=== PATIENT | male | born 1960 | race Caucasian/White ===

== ENCOUNTER 2016-06-25 11:46 | Emergency (ER) | payer BC ==
[~2016-06-25] VITALS: Ht 182.9 cm; Wt 106.5 kg
[2016-06-25 11:50] VITALS: TEMP 36.8; Ht 182.9 cm; Wt 106.5 kg
[2016-06-25] MEDS ORDERED: CARV25TA2 PO (12:20)
[2016-06-25] MEDS ORDERED: OMEP40CA41 PO (12:20)
[2016-06-25] MEDS ORDERED: VITA1TAB4 PO (12:20)
[2016-06-25] MEDS ORDERED: ATV/1 SL (12:20)
[2016-06-25] MEDS ORDERED: GLC5 PO (12:20)
[2016-06-25] MEDS ORDERED: LISI-461 PO (12:20)
[2016-06-25] MEDS ORDERED: [UNRECOGNIZED DRUG - CODE] (12:20)
[2016-06-25] MEDS ORDERED: [UNRECOGNIZED DRUG - CODE] PO (12:20)
--- NOTE | 2016-06-25 12:43 | EMERGENCY ROOM VISIT NOTE ---
History Report prepared by Marycarmen: Melissa Erazo Under the Supervision of: Dr. Robert Huber D.O. First contact with patient: 12:13 Chief Complaint: ABDOMINAL PAIN Stated Complaint: STOMACH PAIN, HAS DRANK SINCE Nursing Triage Summary: Pt c/o diarrhea that began 06/04/16, was seen in ED at [place] a few times and given fluids. Associates nausea. "everytimes I eat I get pain in my gallbladder area". Pt states he has had a GB US and a CT scan "but they didn't do the big one for gallbladder, HIDA scan". Pt states HIDA is scheduled for Friday. "I can't eat nothing and I can't keep nothing in (diarrhea). Denies vomiting. History of Diabetes IDDM Lost 20 pounds in 3 weeks. History of Present Illness The patient is a 55 year old male who presents to the Emergency Room with complaints of constant abdominal pain beginning 3 weeks ago. The patient reports that he was seen in the ED at [place] multiple times and was given fluids. He notes that he had a CT and an ultrasound of his gallbladder but states that they did not do a HIDA scan and he has one scheduled for Friday. The patient states that his pain is worsened after eating and especially with fatty foods.The patient complains of diarrhea beginning 3 weeks ago, pain with eating, recent camping, and nausea with eating. He denies any vomiting, history of heart attack, evaluation for peptic ulcer disease, treatment for H-pylori, and anal intercourse. The patient notes that he has a history of having Campylobacter bacteria. He reports that he is in no pain right now as he just used the bathroom and has not eaten. Source of History: patient Onset: 3 weeks ago Position: abdomen Timing: constant Modifying Factors (Worsening): eating Associated Symptoms: + diarrhea, + nausea, No vomiting Review of Systems See above for pertinent positives & negatives. A total of 10 systems reviewed and were otherwise negative. Past Medical & Surgical Medical Problems: (1) Diabetes (2) HTN (hypertension) Family History No pertinent family history stated. Social History Smoking Status: Never Smoker Alcohol Use: occasionally Drug Use: none Marital Status: Housing Status: lives with significant other Occupation Status: employed Current/Historical Medications Scheduled Carvedilol (Coreg), 25 MG PO BID Desipramine Hcl (Desipramine Hcl), 50 MG PO BID Glipizide (Glipizide), 5 MG PO DAILY Lisinopril (Zestril), 10 MG PO BID Lorazepam (Ativan), 1 MG SL DAILY Omeprazole (Prilosec), 40 MG PO DAILY Vitamin E (Vitamin E), 800 UNITS PO BID Miscellaneous Medications Testosterone (Androgel), 2 APPLN Allergies Coded Allergies: Lactose (Verified Allergy, Unknown, ., 06/25/16) Peanut (Verified Allergy, Unknown, ., 06/25/16) Physical Exam Vital Signs Date Time Temp Pulse Resp B/P Pulse Ox O2 Delivery O2 Flow Rate FiO2 06/25/16 14:28 97 125/71 94 06/25/16 13:31 104 06/25/16 13:24 101 18 119/76 96 Room Air 06/25/16 11:50 36.8 111 18 116/65 97 Room Air Physical Exam GENERAL: Patient is well appearing and in no acute distress. HEENT: No acute trauma, normocephalic atraumatic, mucous membranes moist, no nasal congestion, no scleral icterus. NECK: No stridor, no adenopathy, no meningismus, trachea is midline. LUNGS: No dyspnea. Clear to auscultation and equal bilaterally. No wheeze, no rhonchi. HEART: Regular rate and rhythm. No murmurs, rubs, gallops appreciated. ABDOMEN: Hyperactive bowel sounds, no guarding, minimal abdominal pain. BACK: No midline tenderness, no CVA tenderness EXTREMITIES: Normal motion all extremities, no cyanosis, no edema. NEUROLOGIC: Alert and oriented, no acute motor or sensory deficits, no focal weakness, cranial nerves grossly intact. SKIN: No rash, no jaundice, no diaphoresis. Medical Decision & Procedures ER Provider Diagnostic Interpretation: X ray results and stated below per my interpretation and radiologist interpretation. Other radiology results and stated below per my review and radiologist interpretation: ULTRASOUND RIGHT UPPER QUADRANT ABDOMEN FINDINGS: Liver: The liver is normal in size and echotexture. There is no intrahepatic biliary ductal dilatation. The main portal vein is patent. Gallbladder: The gallbladder is contracted but otherwise normal in appearance. No gallstones are identified. There is no gallbladder wall thickening or pericholecystic fluid. A sonographic Ling's sign is reportedly absent. The common bile duct measures up to 0.5 cm in diameter. Pancreas: Not well visualized due to overlying bowel gas. Right kidney: Survey images of the right kidney demonstrate mild cortical atrophy. There is no hydronephrosis. Ascites: None. IMPRESSION: 1. No acute sonographic abnormality is identified in the right upper quadrant. No gallstones are seen. 2. The pancreas was not well visualized due to overlying bowel gas. Electronically signed by: Efrain Christianson M.D. 06/25/2016 1:54 PM Dictated Date/Time: 06/25/2016 1:52 PM TWO VIEW CHEST FINDINGS: PA and lateral chest radiographs are obtained. No prior studies are available for comparison at the time of dictation. The cardiomediastinal silhouette is unremarkable. The lungs and pleural spaces are clear. There is no pneumothorax. The bony thorax appears intact. IMPRESSION: No active disease in the chest. Electronically signed by: Efrain Christianson M.D. 06/25/2016 2:28 PM Dictated Date/Time: 06/25/2016 2:28 PM Laboratory Results 06/25/16 12:35 Red Blood Count 5.29, Mean Corpuscular Volume 75.0, Mean Corpuscular Hemoglobin 25.1, Mean Corpuscular Hemoglobin Concent 33.5, Mean Platelet Volume 10.2, Neutrophils (%) (Auto) 77.5, Lymphocytes (%) (Auto) 11.8, Monocytes (%) (Auto) 9.3, Eosinophils (%) (Auto) 0.9, Basophils (%) (Auto) 0.3, Neutrophils # (Auto) 6.83, Lymphocytes # (Auto) 1.04, Monocytes # (Auto) 0.82, Eosinophils # (Auto) 0.08, Basophils # (Auto) 0.03 06/25/16 12:35 Test 06/25/16 12:28 06/25/16 12:35 Urine Color DK YELLOW Urine Appearance CLEAR (CLEAR) Urine pH 6.0 (4.5-7.5) Urine Specific [place] 1.023 (1.000-1.030) Urine Protein NEG (NEG) Urine Glucose (UA) NEG (NEG) Urine Ketones NEG (NEG) Urine Occult Blood NEG (NEG) Urine Nitrite NEG (NEG) Urine Bilirubin NEG (NEG) Urine Urobilinogen NEG (NEG) Urine Leukocyte Esterase TRACE (NEG) Urine WBC (Auto) 5-10 /hpf (0-5) Urine RBC (Auto) 0-4 /hpf (0-4) Urine Hyaline Casts (Auto) 1-5 /lpf (0-5) Urine Epithelial Cells (Auto) >30 /lpf (0-5) Urine Bacteria (Auto) NEG (NEG) Urine Renal Epithelial Cells /lpf (0-5) Urine Pathogenic Casts /lpf (0) Urine Mucus PRESENT (NONE PRSENT) White Blood Count 8.82 K/uL (4.8-10.8) Red Blood Count 5.29 M/uL (4.7-6.1) Hemoglobin 13.3 g/dL (14.0-18.0) Hematocrit 39.7 % (42-52) Mean Corpuscular Volume 75.0 fL (80-100) Mean Corpuscular Hemoglobin 25.1 pg (25-34) Mean Corpuscular Hemoglobin Concent 33.5 g/dl (32-36) Platelet Count 264 K/uL (130-400) Mean Platelet Volume 10.2 fL (7.4-10.4) Neutrophils (%) (Auto) 77.5 % Lymphocytes (%) (Auto) 11.8 % Monocytes (%) (Auto) 9.3 % Eosinophils (%) (Auto) 0.9 % Basophils (%) (Auto) 0.3 % Neutrophils # (Auto) 6.83 K/uL (1.4-6.5) Lymphocytes # (Auto) 1.04 K/uL (1.2-3.4) Monocytes # (Auto) 0.82 K/uL (0.11-0.59) Eosinophils # (Auto) 0.08 K/uL (0-0.5) Basophils # (Auto) 0.03 K/uL (0-0.2) RDW Standard Deviation 41.4 fL (36.4-46.3) RDW Coefficient of Variation 15.1 % (11.5-14.5) Immature Granulocyte % (Auto) 0.2 % Immature Granulocyte # (Auto) 0.02 K/uL (0.00-0.02) Anion Gap 9.0 mmol/L (3-11) Est Creatinine Clear Calc Drug Dose 119.7 ml/min Estimated GFR () 112.6 Estimated GFR (Non- 97.2 BUN/Creatinine Ratio 15.6 (10-20) Calcium Level 7.9 mg/dl (8.5-10.1) Total Bilirubin 0.3 mg/dl (0.2-1) Direct Bilirubin < 0.1 mg/dl (0-0.2) Aspartate Amino Transf (AST/SGOT) 11 U/L (15-37) Alanine Aminotransferase (ALT/SGPT) 15 U/L (12-78) Alkaline Phosphatase 63 U/L (45-117) Total Protein 6.8 gm/dl (6.4-8.2) Albumin 2.7 gm/dl (3.4-5.0) Lipase 88 U/L (73-393) Ethyl Alcohol mg/dL < 3.0 mg/dl (0-3) Laboratory results as reviewed by me. Medications Administered Medications (Trade) Dose Ordered Sig/Cheryl Route Start Time Stop Time Status Last Admin Dose Admin Lactated Ringer's (Lr 1000ml) 1,000 ml @ 999 mls/hr Q1H1M IV 06/25/16 12:15 06/25/16 14:15 DC 06/25/16 13:22 999 MLS/HR ECG Indication: abdominal pain Rate (beats per minute): 106 Rhythm: sinus tachycardia Findings: RBBB, other (normal axis, abnormal EKG) Comparison ECG Date: no prior available ED Course 1219: The patient was evaluated in room A4. A complete history and physical exam was performed. 1215: Lactated Ringer's 1000ml @ 999mls/hr IV. 1254: The patient states that he had a course of antibiotics prior to getting his diarrhea. He notes that a coworker was diagnosed with c-diff and he said that he was checked at [place] but it was negative. 1447: Reevaluated the patient. Discussed results and discharge instructions: He verbalized understanding and agreement. The patient is ready for discharge. Medical Decision Differential diagnosis: Etiologies such as appendicitis, diverticulitis, PUD, biliary pathology, UTI, pancreatitis, obstruction, mesenteric ischemia, aortic pathology, infections, inflammatory bowel disease, renal colic, as well as others were entertained. Patient is a 55-year-old male with a significant past medical history for diabetes as well as a cardiomyopathy per report. He states that in the middle of May he felt like he had a head cold was placed on antibiotics and ever since then has had diarrhea and crampy right upper quadrant abdominal pain exquisitely worse after eating. He reports this is similar to the symptoms his experienced before she had her gallbladder removed. He is been seen 3 times and [facility] and has a HIDA scan scheduled on this Friday. Presents to the ED for to hopefully achieve a HIDA scan, I informed the patient we do not have the radionucleotide available to allow for emergent or urgent HIDA. Patient's laboratory examination was largely unremarkable, do not feel that he is having an acute cholecystitis. Nor do I feel he has a ascending cholangitis. A right upper quadrant ultrasound was obtained, the report was reviewed. A stool culture was also ordered. We were not able to obtain a HIDA scan any sooner than what he are has scheduled with [facility], we'll give him a referral to follow-up with Dr. Sauceda of the [facility] next week. Patient will be discharged home in improved stable condition. [place] Drug Monitoring Program Search Results: patient reviewed within database Drug Monitoring Findings: The patient was given 12 Vicodin on 06/20. Impression Primary Impression: Abdominal pain Additional Impressions: Diabetes Hyperglycemia due to type 2 diabetes mellitus Hypoalbuminemia Scribe Attestation The scribe's documentation has been prepared under my direction and personally reviewed by me in its entirety. I confirm that the note above accurately reflects all work, treatment, procedures, and medical decision making performed by me. Departure Information Dispostion Home / Self-Care Referrals Mikal Witt D.O. (PCP) Forms Call Back Authorization, HOME CARE DOCUMENTATION FORM, IMPORTANT VISIT INFORMATION Patient Instructions Abdominal Pain, My [facility] Additional Instructions Follow-up for the HIDA scan this Friday as previously scheduled. Return for inability to keep fluids down, severe pain, fevers chills, or any other concerns. Call Dr. Sauceda's office for follow-up next week after your HIDA scan. Problem Qualifiers
[2016-06-25 12:44] LABS: URINE APPEARANCE CLEAR (CLEAR); URINE BILIRUBIN NEG (NEG); URINE COLOR DK YELLOW; URINE EPITHELIAL CELL AUTO >30 /lpf (0-5); URINE NITRITE NEG (NEG); URINE SPECIFIC GRAVITY 1.023 (1.000-1.030); UROBILINOGEN NEG (NEG)
[2016-06-25 12:46] LABS: BASO % 0.3 %; BASO ABS # 0.03 K/uL (0-0.2); COMPLETE YES; EOS % 0.9 %; HEMATOCRIT 39.7 % (42-52); IG% 0.2 %; LYMPH % 11.8 %; LYMPH ABS # 1.04 K/uL (1.2-3.4); MEAN CORPUSCULAR HEMOGLOBIN 25.1 pg (25-34); MEAN CORPUSCULAR HGB CONC 33.5 g/dl (32-36); MEAN PLATELET VOLUME 10.2 fL (7.4-10.4); MONO % 9.3 %; NEUT % 77.5 %; PLATELET COUNT 264 K/uL (130-400); RED BLOOD COUNT 5.29 M/uL (4.7-6.1); WHITE BLOOD COUNT 8.82 K/uL (4.8-10.8)
[2016-06-25 12:48] LABS: MANUAL MICROSCOPIC REQUIRED? NO; REVIEW REQ? YES
[2016-06-25 13:01] LABS: URINE MUCUS PRESENT (NONE PRSENT)
[2016-06-25 13:05] LABS: ALT/SGPT 15 U/L (12-78); BLOOD UREA NITROGEN 14 mg/dl (7-18); BUN/CREATININE RATIO 15.6 (10-20); CALCIUM 7.9 mg/dl (8.5-10.1); CARBON DIOXIDE 22 mmol/L (21-32); CHLORIDE 110 mmol/L (98-107); GLUCOSE 110 mg/dl (70-99); POTASSIUM 4.1 mmol/L (3.5-5.1); SODIUM 141 mmol/L (136-145)
[2016-06-25 13:08] LABS: ALKALINE PHOSPHATASE 63 U/L (45-117); AST/SGOT 11 U/L (15-37)
[2016-06-25] MEDS: LACTATED RINGER'S 1000ML 1,000 ML IV SCH ×2 (13:20→13:22)
--- NOTE | 2016-06-25 13:55 | DIAGNOSTIC IMAGING REPORT ---
ULTRASOUND RIGHT UPPER QUADRANT ABDOMEN CLINICAL HISTORY: Right upper quadrant abdominal pain. COMPARISON STUDY: No priors. TECHNIQUE: Real-time, grayscale, and color flow sonography of the right upper quadrant of the abdomen was performed. Images are reviewed in the transverse and longitudinal planes. FINDINGS: Liver: The liver is normal in size and echotexture. There is no intrahepatic biliary ductal dilatation. The main portal vein is patent. Gallbladder: The gallbladder is contracted but otherwise normal in appearance. No gallstones are identified. There is no gallbladder wall thickening or pericholecystic fluid. A sonographic Ling's sign is reportedly absent. The common bile duct measures up to 0.5 cm in diameter. Pancreas: Not well visualized due to overlying bowel gas. Right kidney: Survey images of the right kidney demonstrate mild cortical atrophy. There is no hydronephrosis. Ascites: None. IMPRESSION: 1. No acute sonographic abnormality is identified in the right upper quadrant. No gallstones are seen. 2. The pancreas was not well visualized due to overlying bowel gas. Electronically signed by: Efrain Christianson M.D. 06/25/2016 1:54 PM Dictated Date/Time: 06/25/2016 1:52 PM
--- NOTE | 2016-06-25 14:30 | DIAGNOSTIC IMAGING REPORT ---
TWO VIEW CHEST CLINICAL HISTORY: Right upper quadrant abdominal pain. FINDINGS: PA and lateral chest radiographs are obtained. No prior studies are available for comparison at the time of dictation. The cardiomediastinal silhouette is unremarkable. The lungs and pleural spaces are clear. There is no pneumothorax. The bony thorax appears intact. IMPRESSION: No active disease in the chest. Electronically signed by: Efrain Christianson M.D. 06/25/2016 2:28 PM Dictated Date/Time: 06/25/2016 2:28 PM
[2016-06-25 16:42] VITALS: BP 139/82; PULSE 98; O2SAT 98
[2016-07-05] MEDS ORDERED: INSDGI SC (10:39)
[2016-07-10] MEDS ORDERED: HYDR-5688 PO (06:55)
== END 2016-06-25 17:01 | disposition home or self-care (01) ==
LOC: C.EDB 11:52 → C.EDA 17:01
DX: R10.9 Unspecified abdominal pain (principal); E11.65 Type 2 diabetes mellitus with hyperglycemia; E88.09 Other disorders of plasma-protein metabolism, not elsewhere classified; I10 Essential (primary) hypertension; Z79.899 Other long term (current) drug therapy

== ENCOUNTER 2016-07-10 05:25 | Day surgery (SDC) | payer BC ==
[2016-07-05 10:30] VITALS: BMI 32.0
[~2016-07-10] VITALS: Ht 182.9 cm; Wt 109.1 kg
[~2016-07-10 05:25] MED LIST: ATV/1 SL; CARV25TA2 PO; GLC5 PO; INSDGI SC; LISI-461 PO; OMEP40CA41 PO; VITA1TAB4 PO; [UNRECOGNIZED DRUG - CODE]; [UNRECOGNIZED DRUG - CODE] PO
[2016-07-10 05:42] VITALS: BP 150/82; PULSE 119; TEMP 37.1; O2SAT 95; Ht 182.9 cm; Wt 109.1 kg
[2016-07-10] MEDS ORDERED: CEFAZOLIN 2000 MG/60 ML D5W IV SCH (06:00)
[2016-07-10] MEDS ORDERED: LACTATED RINGER'S 1000ML 1,000 ML IV SCH (06:00)
[2016-07-10] MEDS ORDERED: BUPIVACAINE/EPINEPHRINE 0.5% MPF 1:200,000 30 ML VIAL ONE (06:48)
[2016-07-10] MEDS ORDERED: FENTANYL CITRATE INJ 50 MCG/1 ML 2 ML VIAL ONE ×3 (06:49→08:25)
[2016-07-10] MEDS ORDERED: MIDAZOLAM HCL 1 MG/ML 2ML VIAL ONE (06:49)
--- NOTE | 2016-07-10 06:54 | History & Physical Bridge Note ---
H&P Re-Evaluation Bridge Note: I have examined the patient, reviewed the History & Physical and in the interval since the performance of the History & Physical I have noted the following changes of clinical significance: No changes noted
[2016-07-10] MEDS ORDERED: HYDR-5688 PO (06:55)
--- NOTE | 2016-07-10 06:57 | Discharge Instructions ---
Discharge Instructions Date of Service Jul 10, 2016. Admission Reason for Admission: Biliary Dyskinesia, Diabetes Discharge Discharge Diagnosis / Problem: biliary dyskinesia Discharge Goals Goal(s): Decrease discomfort, Improve function Activity Recommendations Activity Limitations: as noted below Lifting Limitations: no more than 10 pounds Exercise/Sports Limitations: until after follow-up appointment May Resume Sexual Activity: after follow-up appointment Shower/Bathe: tomorrow . Instructions / Follow-Up Instructions / Follow-Up call [phone] if any questions/problems. f/u with dr. sauceda in 1-2 weeks. Current Hospital Diet Patient's current hospital diet: Discharge Diet Recommended Diet: Regular Diet Procedures Procedures Performed: lap cholecystectomy Pending Studies Studies pending at discharge: yes List of pending studies: path report Medical Emergencies . Who to Call and When: Medical Emergencies: If at any time you feel your situation is an emergency, please call 911 immediately. . Non-Emergent Contact Non-Emergency issues call your: Primary Care Provider, Surgeon Call Non-Emergent contact if: temperature is above 101, wound has increased drainage, wound has increased redness, wound has increased pain . "Provider Documentation" section prepared by Trent Sauceda. VTE Core Measure Inpt VTE Proph given/why not?: SCD's
--- NOTE | 2016-07-10 06:58 | [facility] Operative Report ---
Operative Report Operative Date Jul 10, 2016. Pre-Operative Diagnosis biliary dyskinesia Post-Operative Diagnosis same Procedure(s) Performed lap aakash Findings normal appearing anatomy Anesthesia get I attest to the content of the Intraoperative Record and any orders documented therein. Any exceptions are noted below.
[2016-07-10] MEDS ORDERED: SURGICEL FIBRILLAR HEMOSTAT 1 X 2IN TOP ONE (07:49)
[2016-07-10] MEDS ORDERED: SODIUM CHLORIDE 0.9% 1000ML 1,000 ML IV SCH (08:11)
[2016-07-10] MEDS ORDERED: KETOROLAC TROMETHAMINE 30 MG/ML VIAL IV. PRN (08:15)
[2016-07-10] MEDS ORDERED: HYDROCODONE/ACETAMOPHEN 5/325MG TAB PO PRN ×2 (08:15)
[2016-07-10] MEDS ORDERED: ONDANSETRON INJ 2 MG/ML 2 ML VIAL IV PRN ×2 (08:15→09:15)
[2016-07-10] MEDS ORDERED: NURSING VERBAL MED ORDER ONE ×3 (08:28)
[2016-07-10] MEDS ORDERED: METOCLOPRAMIDE HCL INJ 5 MG/ML 2 ML VIAL ONE (08:29)
[2016-07-10] MEDS ORDERED: PHENYLEPHRINE 100MCG/ML 5ML SYR ONE (08:29)
[2016-07-10] MEDS ORDERED: PROPOFOL IV EMULSION 10 MG/ML 20 ML VIAL IV ONE (08:29)
[2016-07-10] MEDS ORDERED: LIDOCAINE HCL 2% 2 ML VIAL (20MG/ML) ONE (08:29)
[2016-07-10] MEDS ORDERED: ROCURONIUM BROMIDE 10 MG/ML 5 ML VIAL ONE (08:29)
[2016-07-10] MEDS ORDERED: GLYCOPYRROLATE INJ 0.2 MG/ML VIAL ONE (08:29)
[2016-07-10] MEDS ORDERED: NEOSTIGMINE METHYLSULFATE 5 MG/5 ML SYR ONE (08:29)
[2016-07-10] MEDS ORDERED: ONDANSETRON INJ 2 MG/ML 2 ML VIAL ONE (08:29)
[2016-07-10] MEDS ORDERED: DEXAMETHASONE SOD INJ 4 MG/ML VIAL ONE (08:29)
[2016-07-10] MEDS ORDERED: ALBUTEROL HFA INHALER 8.5 GM INH ONE (08:29)
[2016-07-10] MEDS ORDERED: SUCCINYLCHOLINE CHLORIDE 20 MG/ML 10 ML VIAL IV ONE (08:29)
--- NOTE | 2016-07-10 08:44 | OPERATIVE REPORT ---
DATE OF OPERATION: 07/10/2016 PREOPERATIVE DIAGNOSIS: Symptomatic biliary dyskinesia. POSTOPERATIVE DIAGNOSIS: Same. PROCEDURE: Laparoscopic cholecystectomy. SURGEON: Dr. Trent Sauceda. SMOKE ROOM OPERATOR: Jimmie Ferro PA-C ESTIMATED BLOOD LOSS: Approximately 50 mL. COMPLICATIONS: No immediate. ANESTHESIA: General. The patient tolerated the procedure well. DESCRIPTION OF PROCEDURE: After informed consent was obtained, the patient was taken to the operating suite and placed in the supine position. After successful intubation, the abdomen was sterilely prepped and draped in the usual fashion. A periumbilical incision was made with an 11-blade scalpel and carried down through the soft tissue using electrocautery. Anterior rectus fascia was opened using electrocautery and two #0 Vicryl stay sutures were placed. Peritoneum was entered using blunt finger penetration and a finger sweep was performed. A 12-mm Era trocar was placed and the abdomen was insufflated to 18 mmHg. Laparoscope was inserted and the abdomen examined in 360 degrees. The patient was placed in reverse Trendelenburg position, slightly airplaned to the left. A subxiphoid 5-mm port and 2 right upper quadrant 5-mm ports were placed under direct vision. The gallbladder was identified and grasped. There was some omental fat wrapping around it. We were able to bluntly peel this off the gallbladder. We then took down adhesions around the neck of the gallbladder using [place] dissector. We were then able to quite readily identify the cystic duct. It was skeletonized, clipped twice proximally and once distally and transected. In similar fashion, the cystic artery was identified, skeletonized, clipped and divided as well. The gallbladder was then removed from the gallbladder fossa using electrocautery. It was removed intact and placed into an EndoCatch bag. Thorough irrigation was performed. Several bleeding points in the gallbladder fossa were controlled using electrocautery. Final irrigation was performed. At the end of the procedure, there was adequate hemostasis and no evidence of a bile leak. Because of the oozing nature of the gallbladder fossa, we did place some Surgicel into the fossa itself. Quick look around the abdomen showed no other abnormalities. The gallbladder was removed from the camera port site and all the trocars were removed as well. The abdomen was desufflated. The fascia of the camera port was closed using 0 Vicryl in a [id number] fashion. All the wounds were irrigated and closed using 4-0 Monocryl. Marcaine was injected around the incision for postoperative analgesia and skin glue used as a dressing. The patient was awakened, extubated, and transferred to recovery in stable condition. I attest to the content of the Intraoperative Record and any orders documented therein. Any exceptio ns are noted below.
[2016-07-10] MEDS ORDERED: PROMETHAZINE HCL INJ 6.25 MG in SODIUM CHLORIDE 0.9% 50ML 50 ML IV ONE (08:45)
[2016-07-10] MEDS ORDERED: FENTANYL CITRATE INJ 50 MCG/1 ML 2 ML VIAL IV PRN ×2 (09:00→09:15)
--- NOTE | 2016-07-10 09:12 | Anesthesiology Progress Note ---
Anesthesia Post Op Note Date & Time Jul 10, 2016 at 09:13 Vital Signs Pain Intensity: 4 Vital Signs Past 12 Hours Date Time Temp Pulse Resp B/P Pulse Ox O2 Delivery O2 Flow Rate FiO2 07/10/16 08:50 100 15 128/84 90 07/10/16 08:40 90 18 133/82 98 Mask 10 07/10/16 08:30 86 17 130/77 98 Mask 10 07/10/16 08:22 36.5 86 18 130/83 96 Mask 10 07/10/16 05:42 37.1 119 20 150/82 95 Room Air Notes Mental Status: alert / awake / arousable, participated in evaluation Pt Amnestic to Procedure: Yes Nausea / Vomiting: adequately controlled Pain: adequately controlled Airway Patency, RR, SpO2: stable & adequate BP & HR: stable & adequate Hydration State: stable & adequate Anesthetic Complications: no major complications apparent
[2016-07-10] MEDS ORDERED: PROMETHAZINE HCL INJ 6.25 MG in SODIUM CHLORIDE 0.9% 50ML 50 ML IV PRN (09:15)
[2016-07-10] MEDS ORDERED: EpHEDrine SULFATE INJ 50 MG/ML AMP IV PRN (09:15)
[2016-07-10] MEDS ORDERED: ATROPINE SULFATE 0.1 MG/ML 5ML SYR IV PRN (09:15)
[2016-07-10] MEDS ORDERED: HYDROmorphone INJ 1 MG/ML SYR IV PRN (09:15)
[2016-07-10 10:48] VITALS: BP 141/87; PULSE 18; TEMP 37.1; O2SAT 95
[2016-07-10 10:53] VITALS: PULSE 98
[2016-07-10 11:25] VITALS: BP 140/81; PULSE 95; TEMP 37.1; O2SAT 93
== END 2016-07-10 11:35 | disposition home or self-care (01) ==
LOC: C.ACU 05:25
PROVIDERS: ATTEND Surgery
DX: K80.11 Calculus of gallbladder with chronic cholecystitis with obstruction (principal); K58.9 Irritable bowel syndrome, unspecified; E11.9 Type 2 diabetes mellitus without complications; I10 Essential (primary) hypertension; Z83.3 Family history of diabetes mellitus; Z80.9 Family history of malignant neoplasm, unspecified; Z88.1 Allergy status to other antibiotic agents